=== PATIENT | female | born 1965 | race Caucasian/White ===

== ENCOUNTER → 2018-07-18 21:49 | Outpatient (CLI) | payer OTHER, SELFPAY ==
[2018-07-18 19:23] VITALS: BMI 29.0
[2018-07-18 22:14] LABS: ALB/GLOB Ratio 1.1 RATIO (0.9-2.4); AST(SGOT) 28 U/L (15-37); Alanine Aminotransfer ALT/SGPT 76 U/L (13-56); Albumin, Serum 3.9 g/dL (3.2-5.0); Alkaline Phosphatase 57 U/L (45-117); Anion Gap 9 (5-15); BUN 21 mg/dL (7-18); BUN/Creat Ratio 35.8 RATIO (10-20); Chloride 106 mmol/L (98-107); Cholesterol 198 mg/dL (200); Creatinine, Serum 0.59 mg/dL (0.55-1.02); EST Glomerular Filtration Rate 114 mL/min (>60); Est Glom Filt Rate - Afr Amer 137 mL/min (>60); Globulin 3.7 g/dL (2.2-4.2); Glucose 114 mg/dL (74-106); High Density Lipoprotein 54 mg/dL; Potassium 4.1 mmol/L (3.5-5.1); Protein, Total 7.6 g/dL (6.4-8.2); Sodium Level 141 mmol/L (136-145); Triglycerides 157 mg/dL; Very Low Density Lipoprotein 31 mg/dL (5-40)
== END ==
PROVIDERS: Referring Provider Nurse Practitioner; Visit Provider Nurse Practitioner
DX: I10 Essential (primary) hypertension (principal)
CPT/HCPCS: 80053; 80061

== ENCOUNTER → 2019-03-14 21:47 | Outpatient (CLI) | payer OTHER, SELFPAY ==
[2019-03-14 18:48] VITALS: BMI 31.4
[2019-03-14 22:25] LABS: Thyroid Stim Hormone (TSH) 0.04 uIU/mL (0.358-3.74)
== END ==
PROVIDERS: Referring Provider Nurse Practitioner; Visit Provider Nurse Practitioner
DX: E03.9 Hypothyroidism, unspecified (principal)
CPT/HCPCS: 84443

== ENCOUNTER → 2019-05-15 22:00 | Outpatient (CLI) | payer OTHER, SELFPAY ==
[2019-05-15 17:52] VITALS: BMI 32.3
[2019-05-15 22:25] LABS: Thyroid Stim Hormone (TSH) 0.24 uIU/mL (0.358-3.74)
== END ==
PROVIDERS: Referring Provider Nurse Practitioner; Visit Provider Nurse Practitioner
DX: E03.9 Hypothyroidism, unspecified (principal)
CPT/HCPCS: 84443

== ENCOUNTER → 2019-08-21 20:57 | Outpatient (CLI) | payer OTHER, SELFPAY ==
[2019-08-21 15:28] VITALS: BMI 34.2
[2019-08-21 21:31] LABS: Absolute Lymphocyte Count 2.61 X10^3/uL (0.83-4.51); Absolute Neutrophil Count 4.3 X10^3/uL (2.0-7.7); Basophil# 0.08 X10^3/uL; Eosinophil# 0.16 X10^3/uL; Eosinophils% 2.1 % (0-5); Hematocrit 38.6 % (37-47); Hemoglobin 12.9 g/dL (12.0-15.0); Lymphocyte # 2.61 X10^3/ul (4.0); Lymphocyte % 33.8 % (19-41); Mean Corp Hgb Conc 33.4 g/dL (32-36); Mean Corpuscular Hgb 31.5 pg (27.0-32.0); Mean Corpuscular Volume 94.4 fL (81-99); Mean Platelet Vol. 10.6 fl (6.2-12.0); Monocyte# 0.55 X10^3/uL; Monocyte% 7.1 % (0-10); NRBC Flagged by Analyzer 0 % (0-5); Neutrophil # 4.28 X10^3/uL (2.7-7.7); Neutrophil % 55.4 % (47-70); Platelet Count 245 K/mm3 (150-450); RBC Distribution Width CV 12.1 % (11.6-14.6); RBC Distribution Width SD 42.1 fl (35.1-43.9); Red Blood Count 4.09 M/mm3 (4.2-5.4); White Blood Count 7.7 K/mm3 (4.4-11.0)
[2019-08-21 21:42] LABS: Erythrocyte Sedimentation Rate 13 mm/hr (0-30)
[2019-08-21 21:43] LABS: AST(SGOT) 138 U/L (15-37); Alanine Aminotransfer ALT/SGPT 75 U/L (13-56); Albumin, Serum 3.6 g/dL (3.2-5.0); Alkaline Phosphatase 56 U/L (45-117); Anion Gap 8 (5-15); BUN 16 mg/dL (7-18); BUN/Creat Ratio 18.3 RATIO (10-20); Chloride 106 mmol/L (98-107); Creatinine, Serum 0.87 mg/dL (0.55-1.02); EST Glomerular Filtration Rate 72 mL/min (>60); Est Glom Filt Rate - Afr Amer 87 mL/min (>60); Follicle Stimulating Hormone 9.5 mIU/mL; Globulin 3.7 g/dL (2.2-4.2); Glucose 162 mg/dL (74-106); Luteinizing Hormone 9.1 mIU/mL; Protein, Total 7.3 g/dL (6.4-8.2); Sodium Level 141 mmol/L (136-145)
== END ==
PROVIDERS: Visit Provider Nurse Practitioner
DX: R19.4 Change in bowel habit (principal); R10.13 Epigastric pain; N95.9 Unspecified menopausal and perimenopausal disorder
CPT/HCPCS: 80053; 83001; 83002; 85025; 85652

== ENCOUNTER → 2020-03-07 21:05 | Outpatient (CLI) | payer OTHER, SELFPAY ==
[2020-03-07 15:39] VITALS: BMI 34.2
[2020-03-07 21:21] LABS: Absolute Lymphocyte Count 3.32 X10^3/uL (0.83-4.51); Absolute Neutrophil Count 4.9 X10^3/uL (2.0-7.7); Basophil# 0.08 X10^3/uL; Basophil% 0.9 % (0-1); Eosinophils% 2.2 % (0-5); Hematocrit 41.8 % (37-47); Hemoglobin 13.6 g/dL (12.0-15.0); Lymphocyte # 3.32 X10^3/ul (4.0); Lymphocyte % 36.4 % (19-41); Mean Corp Hgb Conc 32.5 g/dL (32-36); Mean Corpuscular Hgb 31.3 pg (27.0-32.0); Mean Corpuscular Volume 96.1 fL (81-99); Mean Platelet Vol. 9.8 fl (6.2-12.0); Monocyte# 0.54 X10^3/uL; Monocyte% 5.9 % (0-10); NRBC Flagged by Analyzer 0 % (0-5); Neutrophil # 4.93 X10^3/uL (2.7-7.7); Neutrophil % 54.1 % (47-70); Platelet Count 274 K/mm3 (150-450); RBC Distribution Width CV 12.2 % (11.6-14.6); RBC Distribution Width SD 42.5 fl (35.1-43.9); Red Blood Count 4.35 M/mm3 (4.2-5.4); White Blood Count 9.1 K/mm3 (4.4-11.0)
[2020-03-07 21:44] LABS: AST(SGOT) 204 U/L (15-37); Alanine Aminotransfer ALT/SGPT 135 U/L (13-56); Albumin, Serum 3.9 g/dL (3.2-5.0); Alkaline Phosphatase 85 U/L (45-117); Anion Gap 7 (5-15); BUN 12 mg/dL (7-18); BUN/Creat Ratio 15.9 RATIO (10-20); Calcium,Total 9.1 mg/dL (8.5-10.1); Chloride 101 mmol/L (98-107); Cholesterol 257 mg/dL (200); Creatinine, Serum 0.76 mg/dL (0.55-1.02); EST Glomerular Filtration Rate 84 mL/min (>60); Est Glom Filt Rate - Afr Amer 102 mL/min (>60); Glucose 111 mg/dL (74-106); High Density Lipoprotein 50 mg/dL; Potassium 3.8 mmol/L (3.5-5.1); Protein, Total 7.9 g/dL (6.4-8.2); Sodium Level 136 mmol/L (136-145); Triglycerides 257 mg/dL; Very Low Density Lipoprotein 51 mg/dL (5-40)
== END ==
PROVIDERS: Referring Provider Nurse Practitioner; Visit Provider Nurse Practitioner
DX: I10 Essential (primary) hypertension (principal); R74.8 Abnormal levels of other serum enzymes; E03.9 Hypothyroidism, unspecified
CPT/HCPCS: 80053; 80061; 84443; 85025

== ENCOUNTER → 2020-03-28 21:50 | Outpatient (CLI) | payer OTHER, SELFPAY ==
[2020-03-07 15:39] VITALS: BMI 34.2
[2020-03-28 22:08] LABS: Absolute Neutrophil Count 3.9 X10^3/uL (2.0-7.7); Basophil# 0.07 X10^3/uL; Basophil% 0.9 % (0-1); Eosinophil# 0.16 X10^3/uL; Eosinophils% 2.1 % (0-5); Hemoglobin 13.2 g/dL (12.0-15.0); Lymphocyte % 38.9 % (19-41); Mean Corpuscular Hgb 31.5 pg (27.0-32.0); Mean Corpuscular Volume 95.5 fL (81-99); Mean Platelet Vol. 10.3 fl (6.2-12.0); Monocyte# 0.51 X10^3/uL; Monocyte% 6.6 % (0-10); NRBC Flagged by Analyzer 0 % (0-5); Neutrophil # 3.94 X10^3/uL (2.7-7.7); Platelet Count 254 K/mm3 (150-450); RBC Distribution Width CV 12.4 % (11.6-14.6); RBC Distribution Width SD 43.5 fl (35.1-43.9); Red Blood Count 4.19 M/mm3 (4.2-5.4); White Blood Count 7.7 K/mm3 (4.4-11.0)
[2020-03-28 22:49] LABS: ALB/GLOB Ratio 0.9 RATIO (0.9-2.4); AST(SGOT) 162 U/L (15-37); Alanine Aminotransfer ALT/SGPT 161 U/L (13-56); Albumin, Serum 3.7 g/dL (3.2-5.0); Alkaline Phosphatase 83 U/L (45-117); Anion Gap 6 (5-15); BUN 12 mg/dL (7-18); BUN/Creat Ratio 16.3 RATIO (10-20); Calcium,Total 8.8 mg/dL (8.5-10.1); Chloride 105 mmol/L (98-107); Cholesterol 228 mg/dL (200); Creatinine, Serum 0.74 mg/dL (0.55-1.02); EST Glomerular Filtration Rate 87 mL/min (>60); Est Glom Filt Rate - Afr Amer 105 mL/min (>60); Globulin 4.2 g/dL (2.2-4.2); Glucose 134 mg/dL (74-106); High Density Lipoprotein 43 mg/dL; Protein, Total 7.9 g/dL (6.4-8.2); Sodium Level 139 mmol/L (136-145); Triglycerides 305 mg/dL; Very Low Density Lipoprotein 61 mg/dL (5-40)
== END ==
PROVIDERS: Referring Provider Nurse Practitioner; Visit Provider Nurse Practitioner
DX: E03.9 Hypothyroidism, unspecified (principal); I10 Essential (primary) hypertension
CPT/HCPCS: 80053; 80061; 84443; 85025

== ENCOUNTER → 2020-05-16 22:00 | Outpatient (CLI) | payer OTHER, SELFPAY ==
[2020-05-16 22:28] LABS: ALB/GLOB Ratio 0.9 RATIO (0.9-2.4); AST(SGOT) 361 U/L (15-37); Alanine Aminotransfer ALT/SGPT 168 U/L (13-56); Albumin, Serum 3.9 g/dL (3.2-5.0); Alkaline Phosphatase 84 U/L (45-117); Anion Gap 7 (5-15); BUN 12 mg/dL (7-18); BUN/Creat Ratio 14.6 RATIO (10-20); Calcium,Total 9.2 mg/dL (8.5-10.1); Chloride 103 mmol/L (98-107); Cholesterol 225 mg/dL (200); Creatinine, Serum 0.82 mg/dL (0.55-1.02); EST Glomerular Filtration Rate 77 mL/min (>60); Est Glom Filt Rate - Afr Amer 93 mL/min (>60); Globulin 4.2 g/dL (2.2-4.2); Glucose 123 mg/dL (74-106); High Density Lipoprotein 47 mg/dL; Potassium 3.9 mmol/L (3.5-5.1); Protein, Total 8.1 g/dL (6.4-8.2); Sodium Level 138 mmol/L (136-145); Triglycerides 283 mg/dL; Very Low Density Lipoprotein 57 mg/dL (5-40)
== END ==
PROVIDERS: Visit Provider Nurse Practitioner
DX: E03.9 Hypothyroidism, unspecified (principal); R74.8 Abnormal levels of other serum enzymes
CPT/HCPCS: 80053; 80061; 84443

== ENCOUNTER → 2020-07-17 21:29 | Outpatient (CLI) | payer OTHER, SELFPAY ==
[2020-07-18 15:50] LABS: ALB/GLOB Ratio 0.9 RATIO (0.9-2.4); AST(SGOT) 102 U/L (15-37); Alanine Aminotransfer ALT/SGPT 60 U/L (13-56); Albumin, Serum 3.8 g/dL (3.2-5.0); Alkaline Phosphatase 71 U/L (45-117); Anion Gap 8 (5-15); BUN 10 mg/dL (7-18); BUN/Creat Ratio 13.1 RATIO (10-20); Calcium,Total 9.2 mg/dL (8.5-10.1); Chloride 102 mmol/L (98-107); Creatinine, Serum 0.76 mg/dL (0.55-1.02); EST Glomerular Filtration Rate 83 mL/min (>60); Est Glom Filt Rate - Afr Amer 100 mL/min (>60); Globulin 4.1 g/dL (2.2-4.2); Glucose 159 mg/dL (74-106); Potassium 4.2 mmol/L (3.5-5.1); Protein, Total 7.9 g/dL (6.4-8.2); Sodium Level 137 mmol/L (136-145)
== END ==
PROVIDERS: Visit Provider Nurse Practitioner
DX: E03.9 Hypothyroidism, unspecified (principal)
CPT/HCPCS: 80053; 84443

== ENCOUNTER → 2020-08-26 22:02 | Outpatient (CLI) | payer OTHER, SELFPAY ==
[2020-08-26 22:37] LABS: ALB/GLOB Ratio 0.9 RATIO (0.9-2.4); AST(SGOT) 167 U/L (15-37); Alanine Aminotransfer ALT/SGPT 92 U/L (13-56); Albumin, Serum 3.5 g/dL (3.2-5.0); Alkaline Phosphatase 70 U/L (45-117); Anion Gap 10 (5-15); BUN 11 mg/dL (7-18); BUN/Creat Ratio 12.5 RATIO (10-20); Calcium,Total 9.1 mg/dL (8.5-10.1); Chloride 101 mmol/L (98-107); Creatinine, Serum 0.88 mg/dL (0.55-1.02); EST Glomerular Filtration Rate 71 mL/min (>60); Est Glom Filt Rate - Afr Amer 85 mL/min (>60); Glucose 217 mg/dL (74-106); Potassium 3.9 mmol/L (3.5-5.1); Protein, Total 7.5 g/dL (6.4-8.2); Sodium Level 137 mmol/L (136-145); Thyroid Stim Hormone (TSH) 1.67 uIU/mL (0.358-3.74)
== END ==
PROVIDERS: PCP Nurse Practitioner; Visit Provider Nurse Practitioner
DX: R74.8 Abnormal levels of other serum enzymes (principal); E03.9 Hypothyroidism, unspecified
CPT/HCPCS: 80053; 84443

== ENCOUNTER → 2020-11-19 21:49 | Outpatient (CLI) | payer OTHER, SELFPAY ==
[2020-11-19 15:30] VITALS: BMI 33.2
[2020-11-19 22:12] LABS: Hemoglobin A1c 6.1 % (3.8-5.6)
[2020-11-19 22:15] LABS: ALB/GLOB Ratio 0.9 RATIO (0.9-2.4); AST(SGOT) 54 U/L (15-37); Alanine Aminotransfer ALT/SGPT 70 U/L (13-56); Albumin, Serum 3.7 g/dL (3.2-5.0); Alkaline Phosphatase 70 U/L (45-117); Anion Gap 12 (5-15); BUN 14 mg/dL (7-18); BUN/Creat Ratio 23.7 RATIO (10-20); Chloride 101 mmol/L (98-107); Creatinine, Serum 0.59 mg/dL (0.55-1.02); EST Glomerular Filtration Rate 112 mL/min (>60); Est Glom Filt Rate - Afr Amer 135 mL/min (>60); Globulin 4.2 g/dL (2.2-4.2); Glucose 101 mg/dL (74-106); Potassium 3.7 mmol/L (3.5-5.1); Protein, Total 7.9 g/dL (6.4-8.2); Sodium Level 138 mmol/L (136-145); Thyroid Stim Hormone (TSH) 0.01 uIU/mL (0.358-3.74)
== END ==
PROVIDERS: PCP Nurse Practitioner; Visit Provider Nurse Practitioner
DX: E11.65 Type 2 diabetes mellitus with hyperglycemia (principal); E03.9 Hypothyroidism, unspecified; R74.8 Abnormal levels of other serum enzymes
CPT/HCPCS: 80053; 83036; 84443

== ENCOUNTER → 2021-04-14 22:06 | Outpatient (CLI) | payer OTHER, SELFPAY ==
[2021-04-14 22:14] LABS: Absolute Lymphocyte Count 3.76 X10^3/uL (0.83-4.51); Basophil# 0.12 X10^3/uL; Basophil% 1.2 % (0-1); Hematocrit 45.7 % (37-47); Hemoglobin 15.2 g/dL (12.0-15.0); Lymphocyte # 3.76 X10^3/ul (0.83-4.51); Lymphocyte % 38.3 % (19-41); Mean Corp Hgb Conc 33.3 g/dL (32-36); Mean Corpuscular Hgb 30.7 pg (27.0-32.0); Mean Corpuscular Volume 92.3 fL (81-99); Mean Platelet Vol. 9.4 fl (6.2-12.0); Monocyte# 0.71 X10^3/uL; Monocyte% 7.2 % (0-10); NRBC Flagged by Analyzer 0 % (0-5); Neutrophil # 4.98 X10^3/uL (2.7-7.7); Neutrophil % 50.8 % (47-70); Platelet Count 319 K/mm3 (150-450); RBC Distribution Width CV 12.5 % (11.6-14.6); RBC Distribution Width SD 42.6 fl (35.1-43.9); Red Blood Count 4.95 M/mm3 (4.2-5.4); White Blood Count 9.8 K/mm3 (4.4-11.0)
[2021-04-14 22:35] LABS: ALB/GLOB Ratio 0.8 RATIO (0.9-2.4); AST(SGOT) 77 U/L (15-37); Alanine Aminotransfer ALT/SGPT 137 U/L (13-56); Albumin, Serum 3.9 g/dL (3.2-5.0); Alkaline Phosphatase 80 U/L (45-117); Anion Gap 6 (5-15); BUN 17 mg/dL (7-18); BUN/Creat Ratio 25.2 RATIO (10-20); Calcium,Total 9.5 mg/dL (8.5-10.1); Chloride 99 mmol/L (98-107); Cholesterol 246 mg/dL (200); Creatinine, Serum 0.67 mg/dL (0.55-1.02); EST Glomerular Filtration Rate 96 mL/min (>60); Est Glom Filt Rate - Afr Amer 116 mL/min (>60); Globulin 4.6 g/dL (2.2-4.2); Glucose 115 mg/dL (74-106); High Density Lipoprotein 57 mg/dL; Potassium 4.2 mmol/L (3.5-5.1); Protein, Total 8.5 g/dL (6.4-8.2); Sodium Level 135 mmol/L (136-145); Triglycerides 248 mg/dL; Very Low Density Lipoprotein 50 mg/dL (5-40)
[2021-04-14 22:45] LABS: Hemoglobin A1c 6.3 % (3.8-5.6)
== END ==
PROVIDERS: PCP Nurse Practitioner; Visit Provider Nurse Practitioner
DX: E78.2 Mixed hyperlipidemia (principal); I10 Essential (primary) hypertension; E11.65 Type 2 diabetes mellitus with hyperglycemia
CPT/HCPCS: 80053; 80061; 83036; 85025

== ENCOUNTER → 2022-03-11 | Outpatient (CLI) | payer OTHER, SELFPAY ==
[2022-03-11 22:18] LABS: Absolute Lymphocyte Count 3.21 X10^3/uL (0.83-4.51); Absolute Neutrophil Count 5.7 X10^3/uL (2.0-7.7); Basophil# 0.06 X10^3/uL; Basophil% 0.6 % (0-1); Eosinophil# 0.13 X10^3/uL; Eosinophils% 1.3 % (0-5); Hematocrit 42.7 % (37-47); Hemoglobin 14.2 g/dL (12.0-15.0); Lymphocyte # 3.21 X10^3/ul (0.83-4.51); Lymphocyte % 32.9 % (19-41); Mean Corp Hgb Conc 33.3 g/dL (32-36); Mean Corpuscular Hgb 31.1 pg (27.0-32.0); Mean Corpuscular Volume 93.4 fL (81-99); Mean Platelet Vol. 10.3 fl (6.2-12.0); Monocyte# 0.59 X10^3/uL; NRBC Flagged by Analyzer 0 % (0-5); Neutrophil # 5.74 X10^3/uL (2.7-7.7); Neutrophil % 58.8 % (47-70); Platelet Count 278 K/mm3 (150-450); RBC Distribution Width CV 12.1 % (11.6-14.6); RBC Distribution Width SD 41.3 fl (35.1-43.9); Red Blood Count 4.57 M/mm3 (4.2-5.4); White Blood Count 9.8 K/mm3 (4.4-11.0)
[2022-03-11 22:43] LABS: ALB/GLOB Ratio 0.8 RATIO (0.9-2.4); AST(SGOT) 35 U/L (15-37); Alanine Aminotransfer ALT/SGPT 56 U/L (13-56); Albumin, Serum 3.7 g/dL (3.2-5.0); Alkaline Phosphatase 69 U/L (45-117); Anion Gap 8 (5-15); BUN 18 mg/dL (7-18); BUN/Creat Ratio 29.1 RATIO (10-20); Calcium,Total 9.4 mg/dL (8.5-10.1); Chloride 102 mmol/L (98-107); Cholesterol 205 mg/dL (200); Creatinine, Serum 0.62 mg/dL (0.55-1.02); EST Glomerular Filtration Rate 105 mL/min (>60); Est Glom Filt Rate - Afr Amer 128 mL/min (>60); Globulin 4.4 g/dL (2.2-4.2); Glucose 102 mg/dL (74-106); High Density Lipoprotein 51 mg/dL; Potassium 3.9 mmol/L (3.5-5.1); Protein, Total 8.1 g/dL (6.4-8.2); Sodium Level 137 mmol/L (136-145); Thyroid Stim Hormone (TSH) 0.02 uIU/mL (0.358-3.74); Triglycerides 418 mg/dL
[2022-03-11 22:51] LABS: Hemoglobin A1c 6.2 % (3.8-5.6)
== END | disposition home or self-care (01) ==
PROVIDERS: PCP Nurse Practitioner; Visit Provider Nurse Practitioner
DX: I10 Essential (primary) hypertension (principal); E11.65 Type 2 diabetes mellitus with hyperglycemia; E03.9 Hypothyroidism, unspecified
CPT/HCPCS: 80053; 80061; 83036; 84443; 85025

== ENCOUNTER → 2022-07-19 | Outpatient (CLI) | payer OTHER, SELFPAY ==
[2022-07-19 22:41] LABS: Rheumatoid Factor < 10.0 IU/mL (<15); Thyroid Stim Hormone (TSH) 0.01 uIU/mL (0.358-3.74)
[2022-07-21 13:08] LABS: Anti-Centromere B Ab <0.2 AI (0.0-0.9); Anti-Chromatin <0.2 AI (0.0-0.9); Anti-Jo <0.2 AI (0.0-0.9); Anti-Scleroderma-70 AB <0.2 AI (0.0-0.9); RNP Ab 0.2 AI (0.0-0.9); SJOGREN'S Anti-SS-A test < 0.2 AI (0.0-0.9); SJOGREN'S Anti-SS-B test < 0.2 AI (0.0-0.9); Smith Ab <0.2 AI (0.0-0.9)
[2022-07-21 20:35] LABS: Anti-dsDNA Ab 1 IU/mL (0-9)
== END | disposition home or self-care (01) ==
PROVIDERS: PCP Nurse Practitioner; Visit Provider Nurse Practitioner
DX: I10 Essential (primary) hypertension (principal); E11.65 Type 2 diabetes mellitus with hyperglycemia; E03.9 Hypothyroidism, unspecified; M25.50 Pain in unspecified joint
CPT/HCPCS: 83036; 84443; 86225; 86235; 86431

== ENCOUNTER → 2022-11-16 | Outpatient (CLI) | payer OTHER, SELFPAY ==
[2022-11-16 22:21] LABS: Thyroid Stim Hormone (TSH) 0.22 uIU/mL (0.358-3.74)
== END | disposition home or self-care (01) ==
PROVIDERS: PCP Nurse Practitioner; Visit Provider Nurse Practitioner
DX: E03.9 Hypothyroidism, unspecified (principal)
CPT/HCPCS: 84443

== ENCOUNTER → 2022-12-20 | Outpatient (CLI) | payer OTHER, SELFPAY ==
[2022-12-20 21:16] LABS: Thyroid Stim Hormone (TSH) 0.25 uIU/mL (0.358-3.74)
== END | disposition home or self-care (01) ==
PROVIDERS: PCP Nurse Practitioner; Visit Provider Nurse Practitioner
DX: E03.9 Hypothyroidism, unspecified (principal)
CPT/HCPCS: 84443

== ENCOUNTER → 2023-03-15 | Outpatient (CLI) | payer OTHER, SELFPAY ==
[2023-03-15 20:43] LABS: Absolute Lymphocyte Count 3.29 X10^3/uL (0.83-4.51); Absolute Neutrophil Count 4.7 X10^3/uL (2.0-7.7); Basophil# 0.08 X10^3/uL; Basophil% 0.9 % (0-1); Eosinophil# 0.17 X10^3/uL; Eosinophils% 1.9 % (0-5); Hematocrit 46.2 % (37-47); Hemoglobin 15.4 g/dL (12.0-15.0); Lymphocyte # 3.29 X10^3/ul (0.83-4.51); Lymphocyte % 36.7 % (19-41); Mean Corp Hgb Conc 33.3 g/dL (32-36); Mean Corpuscular Hgb 31.6 pg (27.0-32.0); Mean Corpuscular Volume 94.9 fL (81-99); Mean Platelet Vol. 9.9 fl (6.2-12.0); Monocyte# 0.62 X10^3/uL; Monocyte% 6.9 % (0-10); NRBC Flagged by Analyzer 0 % (0-5); Neutrophil # 4.74 X10^3/uL (2.7-7.7); Neutrophil % 52.8 % (47-70); Platelet Count 278 K/mm3 (150-450); RBC Distribution Width CV 12.3 % (11.6-14.6); RBC Distribution Width SD 42.5 fl (35.1-43.9); Red Blood Count 4.87 M/mm3 (4.2-5.4)
[2023-03-15 21:05] LABS: ALB/GLOB Ratio 0.9 RATIO (0.9-2.4); AST(SGOT) 140 U/L (15-37); Alanine Aminotransfer ALT/SGPT 182 U/L (13-56); Albumin, Serum 3.9 g/dL (3.2-5.0); Alkaline Phosphatase 72 U/L (45-117); Anion Gap 10 (5-15); BUN 16 mg/dL (7-18); BUN/Creat Ratio 22.9 RATIO (10-20); Calcium,Total 9.3 mg/dL (8.5-10.1); Chloride 102 mmol/L (98-107); Cholesterol 271 mg/dL (200); EST Glomerular Filtration Rate 91 mL/min (>60); Est Glom Filt Rate - Afr Amer 110 mL/min (>60); Globulin 4.3 g/dL (2.2-4.2); Glucose 132 mg/dL (74-106); High Density Lipoprotein 56 mg/dL; Potassium 3.9 mmol/L (3.5-5.1); Protein, Total 8.2 g/dL (6.4-8.2); Sodium Level 137 mmol/L (136-145); Thyroid Stim Hormone (TSH) 0.17 uIU/mL (0.358-3.74); Triglycerides 337 mg/dL; Very Low Density Lipoprotein 67 mg/dL (5-40)
[2023-03-16 21:46] LABS: Hemoglobin A1c 6.6 % (3.8-5.6)
== END | disposition home or self-care (01) ==
PROVIDERS: PCP Nurse Practitioner; Visit Provider Nurse Practitioner
DX: I10 Essential (primary) hypertension (principal); E11.65 Type 2 diabetes mellitus with hyperglycemia; E03.9 Hypothyroidism, unspecified; E78.2 Mixed hyperlipidemia
CPT/HCPCS: 80053; 80061; 83036; 84443; 85025

== ENCOUNTER → 2024-01-17 | Outpatient (CLI) | payer OTHER, SELFPAY ==
[2024-01-17 21:37] LABS: Hemoglobin A1c 5.6 % (3.8-5.6)
[2024-01-17 21:44] LABS: ALB/GLOB Ratio 0.9 RATIO (0.9-2.4); AST(SGOT) 69 U/L (15-37); Alanine Aminotransfer ALT/SGPT 97 U/L (13-56); Albumin, Serum 3.7 g/dL (3.2-5.0); Alkaline Phosphatase 61 U/L (45-117); Anion Gap 8 (5-15); BUN 20 mg/dL (7-18); BUN/Creat Ratio 28.3 RATIO (10-20); Calcium,Total 10.3 mg/dL (8.5-10.1); Chloride 100 mmol/L (98-107); Creatinine, Serum 0.71 mg/dL (0.55-1.02); EST Glomerular Filtration Rate 90 mL/min (>60); Est Glom Filt Rate - Afr Amer 109 mL/min (>60); Globulin 3.9 g/dL (2.2-4.2); Glucose 107 mg/dL (74-106); Protein, Total 7.6 g/dL (6.4-8.2); Sodium Level 138 mmol/L (136-145); Thyroid Stim Hormone (TSH) 0.252 uIU/mL (0.358-3.740)
== END | disposition home or self-care (01) ==
PROVIDERS: PCP Nurse Practitioner; Referring Provider Nurse Practitioner; Visit Provider Nurse Practitioner
DX: I10 Essential (primary) hypertension (principal); E11.65 Type 2 diabetes mellitus with hyperglycemia; E03.9 Hypothyroidism, unspecified
CPT/HCPCS: 80053; 83036; 84443

== ENCOUNTER → 2024-04-09 | Outpatient (CLI) | payer OTHER, SELFPAY ==
[2024-04-09 22:57] LABS: Absolute Lymphocyte Count 3.43 X10^3/uL (0.83-4.51); Absolute Neutrophil Count 6.2 X10^3/uL (2.0-7.7); Basophil# 0.09 X10^3/uL; Basophil% 0.9 % (0-1); Eosinophils% 1.9 % (0-5); Hematocrit 38.7 % (37-47); Hemoglobin 12.9 g/dL (12.0-15.0); Lymphocyte # 3.43 X10^3/ul (0.83-4.51); Lymphocyte % 32.6 % (19-41); Mean Corp Hgb Conc 33.3 g/dL (32-36); Mean Corpuscular Hgb 30.9 pg (27.0-32.0); Mean Corpuscular Volume 92.8 fL (81-99); Monocyte# 0.61 X10^3/uL; Monocyte% 5.8 % (0-10); NRBC Flagged by Analyzer 0 % (0-5); Neutrophil # 6.16 X10^3/uL (2.7-7.7); Neutrophil % 58.4 % (47-70); Platelet Count 376 K/mm3 (150-450); RBC Distribution Width CV 11.9 % (11.6-14.6); Red Blood Count 4.17 M/mm3 (4.2-5.4); White Blood Count 10.5 K/mm3 (4.4-11.0)
[2024-04-09 23:48] LABS: ALB/GLOB Ratio 0.9 RATIO (0.9-2.4); AST(SGOT) 33 U/L (15-37); Alanine Aminotransfer ALT/SGPT 51 U/L (13-56); Albumin, Serum 3.8 g/dL (3.2-5.0); Alkaline Phosphatase 76 U/L (45-117); Anion Gap 9 (5-15); BUN 26 mg/dL (7-18); BUN/Creat Ratio 30.2 RATIO (10-20); Calcium,Total 9.4 mg/dL (8.5-10.1); Chloride 101 mmol/L (98-107); Cholesterol 224 mg/dL (200); Creatinine, Serum 0.86 mg/dL (0.55-1.02); EST Glomerular Filtration Rate 72 mL/min (>60); Est Glom Filt Rate - Afr Amer 87 mL/min (>60); Globulin 4.1 g/dL (2.2-4.2); Glucose 105 mg/dL (74-106); High Density Lipoprotein 40 mg/dL; Potassium 3.8 mmol/L (3.5-5.1); Protein, Total 7.9 g/dL (6.4-8.2); Sodium Level 138 mmol/L (136-145); Thyroid Stim Hormone (TSH) 0.032 uIU/mL (0.358-3.740); Triglycerides 525 mg/dL
[2024-04-09 23:56] LABS: Hemoglobin A1c 5.4 % (3.8-5.6)
== END | disposition home or self-care (01) ==
PROVIDERS: PCP Nurse Practitioner; Referring Provider Nurse Practitioner; Visit Provider Nurse Practitioner
DX: I10 Essential (primary) hypertension (principal); E11.65 Type 2 diabetes mellitus with hyperglycemia; N95.9 Unspecified menopausal and perimenopausal disorder; E03.9 Hypothyroidism, unspecified; E78.2 Mixed hyperlipidemia
CPT/HCPCS: 80053; 80061; 83036; 84443; 85025

== ENCOUNTER → 2024-05-10 | Outpatient (CLI) | payer OTHER, SELFPAY ==
[2024-05-10 21:28] LABS: Thyroid Stim Hormone (TSH) 0.018 uIU/mL (0.358-3.740)
[2024-05-15 15:38] LABS: T4 Total, Thyroxin 20.1 ug/dL (4.8-13.9)
== END | disposition home or self-care (01) ==
PROVIDERS: PCP Nurse Practitioner; Visit Provider Nurse Practitioner
DX: E03.9 Hypothyroidism, unspecified (principal)
CPT/HCPCS: 84436; 84443

== ENCOUNTER → 2024-05-17 | Outpatient (CLI) | payer OTHER, SELFPAY ==
[2024-05-17 21:20] LABS: Free T3 2.4 pg/mL (2.18-3.98); T4 Free Direct 1.57 ng/dL (0.76-1.46)
[2024-05-21 16:08] LABS: Thyroglobulin Antibody 1.4 IU/mL (0.0-0.9); Thyroid Peroxidase AB 11 IU/mL (0-34)
== END | disposition home or self-care (01) ==
PROVIDERS: PCP Nurse Practitioner; Referring Provider Nurse Practitioner; Visit Provider Nurse Practitioner
DX: E03.9 Hypothyroidism, unspecified (principal); E11.65 Type 2 diabetes mellitus with hyperglycemia; R53.83 Other fatigue
CPT/HCPCS: 84439; 84481; 86376; 86800

== ENCOUNTER → 2024-11-13 | Outpatient (CLI) | payer OTHER, SELFPAY ==
[2024-11-13 23:20] LABS: ALB/GLOB Ratio 1.4 RATIO (0.9-2.4); AST(SGOT) 39 U/L (<=31); Alanine Aminotransfer ALT/SGPT 42 U/L (<=34); Albumin, Serum 4.5 g/dL (3.4-4.8); Alkaline Phosphatase 76 U/L (35-104); Anion Gap 14 (5-15); BUN 17 mg/dL (4-19); BUN/Creat Ratio 24.8 RATIO (10-20); Calcium,Total 9.8 mg/dL (7.6-11.0); Carbon Dioxide 24.8 mmol/L (21.0-32.0); Chloride 98 mmol/L (98-108); Creatinine, Serum 0.69 mg/dL (0.70-1.20); EST Glomerular Filtration Rate 99 (>60); Globulin 3.2 g/dL (2.2-4.2); Glucose 96 mg/dL (70-99); Potassium 3.8 mmol/L (3.3-5.1); Protein, Total 7.6 g/dL (5.9-8.4); Sodium Level 136 mmol/L (133-145)
[2024-11-14 15:06] LABS: Cholesterol 157 mg/dL (<=200); High Density Lipoprotein 46 mg/dL; Low Density Lipoprotein Calc. 69 mg/dL; Triglycerides 212 mg/dL; Very Low Density Lipoprotein 42 mg/dL (5-40); cholesterol:hdl ratio screen 3.45
== END | disposition home or self-care (01) ==
PROVIDERS: PCP Nurse Practitioner; Referring Provider Nurse Practitioner; Visit Provider Nurse Practitioner
DX: E78.2 Mixed hyperlipidemia (principal)
CPT/HCPCS: 80053; 80061